=== PATIENT | female | born 1945 | race Caucasian/White ===

== ENCOUNTER 2017-04-10 12:10 | Emergency (ER) | payer MEDICARE, OTHER ==
[~2017-04-10] VITALS: Ht 170.2 cm; Wt 109.3 kg
--- NOTE | ~2017-04-10 | CR173 ---
[facility] A Service of [facility] & [facility] RADIOLOGY TEXT RESULTS PATIENT: GRACIE ALEXANDRA LOCATION: SED : 43 UNIT #: [id number] AGE: [address]: Subha Blanchard SEX: F ORDER DR: [id number] [place] [id number] E MR#: [id number] Acc #: [id number] NAME: GRACIE ALEXANDRA : 1945 SEX: F STUDY DATE/TIME: UNIT: SED ROOM: STUDY DESCRIPTION: CR Knee 3 Views Rt Attending Physician: Subha Blanchard Pa-C Ordering Physician: Subha Blanchard Pa-C Primary Care Physician: Derrell Arthur P.A.-C. MEDICAL IMAGING REPORT This report is preliminary unless electronic signature is present. EXAM Right knee, 3 views; 04/10/2017, 1236 hours. CLINICAL HISTORY 71-year-old woman who tripped and fell landing on right knee today. Knee pain. COMPARISON None. FINDINGS AP, lateral and sunrise views demonstrate postop change of total knee replacement. There is no acute fracture or hardware failure. No joint effusion. IMPRESSION Postop total knee replacement with no acute fracture or hardware failure. Dictated by... Kavita Mace M.D. THIS IS AN ELECTRONICALLY VERIFIED REPORT Kavita Mace M.D. at 04/11/2017 11:08 AM Vincent TD: 04/10/2017 16:21 JOB #: [id number] MEDICAL IMAGING REPORT Page 1 of 1
--- NOTE | ~2017-04-10 | CR133 ---
[facility]. [facility] A Service of [facility] & [facility] RADIOLOGY TEXT RESULTS PATIENT: GRACIE ALEXANDRA LOCATION: SED : 44 UNIT #: [id number] AGE: [address]: Subha Blanchard SEX: F ORDER DR: [id number] [place] [id number] E MR#: [id number] Acc #: [id number] NAME: GRACIE ALEXANDRA : 1945 SEX: F STUDY DATE/TIME: UNIT: SED ROOM: STUDY DESCRIPTION: CR Forearm 2 View Rt Attending Physician: Subha Blanchard Pa-C Ordering Physician: Subha Blanchard Pa-C Primary Care Physician: Derrell Arthur P.A.-C. MEDICAL IMAGING REPORT This report is preliminary unless electronic signature is present. EXAM Right forearm 04/10/2017 1236 hours. HISTORY Patient tripped and fell this morning landing on right side. Pain, swelling and bruising on arm. COMPARISON None FINDINGS AP and lateral views of the radius and ulna demonstrate no fracture, dislocation or foreign body. There is suggestion of subcutaneous edema. IMPRESSION Negative right forearm. Dictated by... Kavita Mace M.D. THIS IS AN ELECTRONICALLY VERIFIED REPORT Kavita Mace M.D. at 04/11/2017 11:08 AM Shakeel TD: 04/10/2017 16:04 JOB #: [id number] MEDICAL IMAGING REPORT Page 1 of 1
[~2017-04-10 12:10] MED LIST: ACETAMINOPHEN650 M1 PO; ATIVAN2 MG PO; AUGMENTIN PO; BACTRIM DS TABL1 TA1 PO; CARBAMAZEPINE100 MG PO; CARBATROL100 MG PO; EFFEXOR XR75 MG PO; FLEXERIL10 MG PO; GABAPENTIN300 M2 PO; HYDROCODON-ACE1 EAC9 PO; HYOSCYAMINE0.375 M5 PO; LEXAPRO20 MG PO; LIORESAL10 MG; LORAZEPAM1 MG PO; MEDROL4 MG/DOSE- PO; METFORMIN HCL500 M3 PO; METOPROLOL SUCC50 MG PO; MOBIC7.5 MG/5 M PO; NORCO1 TAB 10/3 PO; OMEPRAZOLE20 M1 PO; PRILOSEC; REMERON30 MG PO; ROBAXIN500 MG PO; SYNTHROID PO; SYNTHROID125 PO; TOPROL XL 50 MG50 MG PO; VITAMIN D2400 UNIT; VOLTAREN75 MG PO; ZANAFLEX4 M1 PO; ZESTRIL10 M1 PO; ZESTRIL40 MG; ZESTRIL40 MG PO; ZOCOR80 MG PO
== END 2017-04-10 13:20 | disposition home or self-care (01) ==
LOC: SED 12:10
DX: S50.11XA Contusion of right forearm, initial encounter (principal); S80.01XA Contusion of right knee, initial encounter; I10 Essential (primary) hypertension; E11.9 Type 2 diabetes mellitus without complications; J44.9 Chronic obstructive pulmonary disease, unspecified; F17.200 Nicotine dependence, unspecified, uncomplicated; Z85.118 Personal history of other malignant neoplasm of bronchus and lung; Z23 Encounter for immunization; Z79.899 Other long term (current) drug therapy; W01.0XXA Fall on same level from slipping, tripping and stumbling without subsequent striking against object, initial encounter; Y92.410 Unspecified street and highway as the place of occurrence of the external cause
CPT/HCPCS: 73090; 73562; 90471; 90715; 99283